=== PATIENT | male | born 1955 | race Caucasian/White ===

== ENCOUNTER 2018-06-26 14:45 | Day surgery (SDC) | payer MEDICARE, OTHER ==
[~2018-06-26] VITALS: Ht 185.4 cm; Wt 139.3 kg
[~2018-06-26 14:45] MED LIST: CLON0.5T8 PO; CYCL10TA PO; DULO30CA9 PO; FINA5TAB2 PO; FLOM0.4C39 PO; KETOROLAC 60 MG/2 ML VIAL (J1885) As Ordered ONE; LIDOCAINE 1% MDV 20ML VIAL SQ PRN; LIDOCAINE PRES-FREE 2% 10ML AMP As Ordered ONE; LIPI20TA PO; LR 1,000 ML IV ONE; METH10CO PO; MIDAZOLAM INJ 2 MG/2 ML VIAL (J2250) As Ordered ONE; ONDANSETRON 4MG/2ML VIAL (J2405) As Ordered ONE; PROPOFOL 200 MG/20 ML VIAL As Ordered ONE; dexameTHASONE 4 MG/ML 1ML VIAL (J1100) As Ordered ONE; fentaNYL 100 MCG/2 ML INJECTION (J3010) As Ordered ONE
[2018-06-26] MEDS ORDERED: ceFAZolin 1GM INJ (J0690 PER 500MG) As Ordered ONE (15:09)
[2018-06-26] MEDS ORDERED: ceFAZolin 2 GM/D5W 50 ML IV BAG (J0690 PER 500MG) As Ordered ONE (15:10)
[2018-06-26] MEDS ORDERED: ceFAZolin SOD 1 GM in D5W MINI-BAG PLUS 50 ML IV ONE (15:30)
[2018-06-26] MEDS ORDERED: BACITRACIN OINT 30GM As Ordered ONE (17:40)
[2018-06-26] MEDS ORDERED: ROCURONIUM BROMIDE 50 MG/5 ML VIAL As Ordered ONE (18:26)
[2018-06-26] MEDS ORDERED: SUGAMMADEX SODIUM 500 MG/5 ML VIAL (BRIDION) As Ordered ONE (18:27)
[2018-06-26] MEDS ORDERED: METOCLOPRAMIDE INJ 10MG/2ML VIAL (J2765) As Ordered ONE (18:27)
[2018-06-26] MEDS ORDERED: PHENYLephrine HCL 500 MCG/5 ML (100MCG/ML) SYRINGE (J2370) As Ordered ONE (19:00)
[2018-06-26] MEDS ORDERED: ACETAMINOPHEN 1000MG 100ML IV BTL (OFIRMEV) (J0131 PER 10MG) As Ordered ONE (19:03)
[2018-06-26] MEDS ORDERED: fentaNYL 100 MCG/2 ML INJECTION (J3010) As Ordered ONE (19:21)
[2018-06-26] MEDS ORDERED: ONDANSETRON 4MG/2ML VIAL (J2405) IV PRN (20:30)
[2018-06-26] MEDS ORDERED: oxyCODONE 5MG TAB PO PRN (20:30)
[2018-06-26] MEDS ORDERED: LR 1,000 ML IV SCH (20:30)
[2018-06-26] MEDS ORDERED: fentaNYL 100 MCG/2 ML INJECTION (J3010) IV PRN (20:30)
[2018-06-26] MEDS ORDERED: PERCOCET 5MG/325MG TAB PO PRN ×2 (20:45)
[2018-06-26 21:35] VITALS: BP 177/93
--- NOTE | 2018-06-27 09:48 | RO ---
DATE OF PROCEDURE: 06/26/2018 PREPROCEDURE DIAGNOSIS: Phimosis. POSTPROCEDURE DIAGNOSIS: Phimosis. PROCEDURE: Circumcision. SURGEON: Bk Dunbar MD POST OFFICE MARKUP CLERK: None. ANESTHESIA: General. OPERATIVE INDICATIONS: This is a 62-year-old male who has a tight phimotic ring, which makes it difficult to retract his foreskin. He wished to have the above-listed procedure done for treatment. DESCRIPTION OF PROCEDURE: The patient was brought to the operating room and general anesthesia was induced. Prophylactic antibiotics were infused. He was then placed in the supine position and prepped and draped in the usual sterile fashion. At this point, circumcising incisions were made at the level of the coronal sulcus with the foreskin retracted over the glans, and then also with the foreskin retracted down off the glans. At this point, all the skin in between these two incisions was then removed using electrocautery. Any areas of bleeding were controlled with electrocautery. Any larger vessels were controlled with a #3-0 Vicryl tie. At this point, all the remaining skin of the penile shaft was then reapproximated to the glans using interrupted #2-0 chromic sutures. Once this was done, dressings were applied. The dressings included a Maria Esther wrapped around the circumcision line followed by Joseluis. Once the dressings were applied, this marked the conclusion of the procedure. The patient was then awakened from anesthesia and transported to the recovery room in stable condition. Estimated blood loss was 15 mL. Complications: None. Specimens: Foreskin. PLAN: The patient will remove his dressings in approximately 2 days. He will followup in the clinic in a few weeks for a postoperative visit.
== END 2018-06-26 21:42 | disposition home or self-care (01) ==
LOC: M SDC 14:45
PROVIDERS: ATTEND Urology
DX: N47.1 Phimosis (principal); I12.9 Hypertensive chronic kidney disease with stage 1 through stage 4 chronic kidney disease, or unspecified chronic kidney disease; I20.9 Angina pectoris, unspecified; I49.9 Cardiac arrhythmia, unspecified; F32.9 Major depressive disorder, single episode, unspecified; K21.9 Gastro-esophageal reflux disease without esophagitis; M15.0 Primary generalized (osteo)arthritis; G47.30 Sleep apnea, unspecified; E78.00 Pure hypercholesterolemia, unspecified; E78.5 Hyperlipidemia, unspecified; E03.9 Hypothyroidism, unspecified; M54.2 Cervicalgia; J32.0 Chronic maxillary sinusitis; G47.00 Insomnia, unspecified; N52.9 Male erectile dysfunction, unspecified; R06.83 Snoring; N18.9 Chronic kidney disease, unspecified; N40.0 Benign prostatic hyperplasia without lower urinary tract symptoms; R32 Unspecified urinary incontinence; R29.898 Other symptoms and signs involving the musculoskeletal system; E66.9 Obesity, unspecified; Z68.41 Body mass index [BMI] 40.0-44.9, adult; Z91.048 Other nonmedicinal substance allergy status; Z79.899 Other long term (current) drug therapy; Z86.711 Personal history of pulmonary embolism; Z86.14 Personal history of Methicillin resistant Staphylococcus aureus infection
CPT/HCPCS: 54161; 88304; J0131; J0690; J1100; J2250; J2370; J2405; J2765; J3010

== ENCOUNTER → 2018-10-20 | Outpatient (REF) ==
[~2018-10-20] MED LIST changes: -KETOROLAC 60 MG/2 ML VIAL (J1885) As Ordered ONE; -LIDOCAINE 1% MDV 20ML VIAL SQ PRN; -LIDOCAINE PRES-FREE 2% 10ML AMP As Ordered ONE; -LR 1,000 ML IV ONE; -MIDAZOLAM INJ 2 MG/2 ML VIAL (J2250) As Ordered ONE; -ONDANSETRON 4MG/2ML VIAL (J2405) As Ordered ONE; -PROPOFOL 200 MG/20 ML VIAL As Ordered ONE; -dexameTHASONE 4 MG/ML 1ML VIAL (J1100) As Ordered ONE; -fentaNYL 100 MCG/2 ML INJECTION (J3010) As Ordered ONE
--- NOTE | 2018-10-20 15:47 | REP ---
REASON FOR EXAM: Disability determination. PRIORS: None. There is tricompartmental marginal osteophytosis. There is narrowing of the medial compartment and patellofemoral joint. There is no evidence of an acute fracture. IMPRESSION: Chronic changes as described above. Electronically Signed by Cuauhtemoc Ramos DO 10/20/2018 05:09 P
== END ==
LOC: M SMT 13:15
PROVIDERS: ATTEND Internal Medicine
DX: Z00.00 Encounter for general adult medical examination without abnormal findings (principal)